=== PATIENT | female | born 1940 | race Caucasian/White ===

== ENCOUNTER 2022-01-24 08:08 | Day surgery (SDC) | payer MEDICARE, BC, SELFPAY ==
[2022-01-24] VITALS (30 sets, daily range): BP systolic 101–164; BP diastolic 52–84; PULSE 40–72; RESP 12–20; TEMP 35.8–37.1; O2SAT 87–99; BMI 26.7
[2022-01-24] MEDS: OXYCODONE (CR) 10 MG TAB.ER.12H PO (08:33)
[2022-01-24] MEDS: CELECOXIB 200 MG CAPSULE PO ×2 (09:55→20:36)
[2022-01-24] MEDS: ACETAMINOPHEN 500 MG TABLET 1000 MG PO ×3 (09:55→22:08)
[2022-01-24] MEDS: LACTATED RINGERS 1000 ML 1,000 ML 100 ML IV ×2 (10:15→11:39)
[2022-01-24] MEDS: fentaNYL 100 MCG/2 ML inj IVP (10:25)
--- NOTE | 2022-01-24 10:28 | W.PM.NB ---
Nerve Block Nerve Block Time Seen by Provider: 10:25 Date Seen: 01/24/22 Type of block requested by surgeon for post-operative analgesia: adductor canal Side: left Time out performed: Yes Verification of patient name: Yes Verification of date of : Yes Site marking: site marked Name of person performing procedure: Sonido Assistants, if any: Chris Continuous monitoring Was continuous monitoring of O2 sat, B/P, nurse monitoring, recorded every 15 minutes?: Yes Procedure Checklist: sterile prep, needles and gloves Ultrasound guided. Images saved: Yes Medications given in 5ml increments after negative aspiration: Ropivicaine %: 0.5 mL: 20 Needle gauge: 20 Decadron (mg): 10 Precedex (mcg): 25 Patient tolerated procedure well: Yes Additional comments: Needle noted adjacent to nerve Block Charges Block Charge (with Pro Fee): Femoral Nerve Use of Ultrasound Machine for Block: Yes- US Guidance/pain block
[2022-01-24] MEDS: MIDAZOLAM HCL 1 MG/ML inj IVP (10:30)
--- NOTE | 2022-01-24 10:31 | SUR.PREOP ---
TIME?OUT:?1022 left knee PT/RN/MDA?VERIFICATION?OF?SURGICAL?SITE,?PROCEDURE,?AND?CONSENT OBTAINED?PRIOR?TO?INVASIVE?PROCEDURE.
[2022-01-24] MEDS: SODIUM CHLORIDE 0.9 % (FLUSH) 10 ML SYRINGE IVF (10:34)
[2022-01-24] MEDS: CEFAZOLIN 2 GM INJ IVP (10:35)
[2022-01-24] MEDS: TRANEXAMIC ACID 100 MG/ML INJ 1000 MG IV (10:40)
--- NOTE | 2022-01-24 10:46 | W.PM.NB ---
Nerve Block Nerve Block Time Seen by Provider: 10:25 Date Seen: 01/24/22 Type of block requested by surgeon for post-operative analgesia: geniculars Side: left Time out performed: Yes Verification of patient name: Yes Verification of date of : Yes Site marking: site marked Name of person performing procedure: Sonido Continuous monitoring Was continuous monitoring of O2 sat, B/P, hall monitor, recorded every 15 minutes?: Yes Procedure Checklist: sterile prep, needles and gloves Medications given in 5ml increments after negative aspiration: Ropivicaine %: 0.5 mL: 9 Needle gauge: 25 Patient tolerated procedure well: Yes Block Charges Block Charge (with Pro Fee): Genicular Nerve Block Use of Ultrasound Machine for Block: No
--- NOTE | 2022-01-24 11:13 | W.ANESCHARGE ---
Anesthesia Charges Start Date/Time Anesthesia Start Date: 01/24/22 Anesthesia Start Time: 10:30 Stop Date/Time Anesthesia Stop Date: 01/24/22 Anesthesia Stop Time: 12:42 Summary Emergency: No Extremes of Age: Over 71-CPT 15755
--- NOTE | 2022-01-24 11:46 | CRLHL7_ITS ---
For Patients: As a result of the Century Cures Act, medical imaging exams and procedure reports are released immediately into your electronic medical record. You may view this report before your referring provider. If you have questions, please contact your health care provider. Indication: POST-OP LFT TKA Technique: Two views left knee Findings/Impression: Hardware from a left total knee arthroplasty is in satisfactory position. Bone alignment is normal. No sign of acute fracture. Postop changes are within normal limits. Dictated by Dariel Albright MD @ 01/24/2022 1:07:28 PM (Electronically Signed)
--- NOTE | 2022-01-24 11:48 | PM.ORPRC ---
Procedure Note Date of procedure: 01/24/22 Procedure: SURGEON: Gucci Sneed MD FLUME WORKER: Soila Tinajero PA-C PREOPERATIVE DIAGNOSIS: Left knee osteoarthritis POSTOPERATIVE DIAGNOSIS: Left knee osteoarthritis NAME OF OPERATION: Left total knee arthroplasty ANESTHESIA: Spinal ESTIMATED BLOOD LOSS: 0 mL COMPLICATIONS: None SPECIMENS: None DRAINS: None PREOPERATIVE ANTIBIOTICS: Ancef 1 g IMPLANTS: 1. J&J Attune # 5 posterior stabilized femur 2. # 5 fixed-bearing tibia 3. # 5 posterior stabilized, 5 mm fixed-bearing polyethylene 4. 38 patella INDICATIONS: The patient is a 81-year-old with a longstanding history of severe, unrelenting left knee pain secondary to end-stage (grade IV) left knee osteoarthritis. Despite appropriate nonoperative management, including activity modification, anti-inflammatories, huqa-cdz-ppvinne pain medication, bracing, physical therapy, and injections they continue to have pain and disability. Operative intervention was offered. The risks, benefits and expected outcomes were discussed in detail. These included but were not limited to: Infection, bleeding, injury to blood vessel or nerve, venous thromboembolism. All questions were answered to their satisfaction. Use of an oceanographer assistant was necessary throughout the case for patient positioning and safety, soft tissue retraction, and closure. PROCEDURE: Spinal anesthesia was administered. The patient was placed supine on the operating table. The oceanographer assistant made sure the patient was positioned appropriately. The lower extremity was prepped and draped in the usual sterile fashion. The limb was exsanguinated with the Nadir bandage. The pneumatic tourniquet was inflated to 300 mmHg. A standard anterior incision was made with the knee in flexion. Subcutaneous dissection was sharply taken through fascial layer #1. Full-thickness medial and lateral flaps were elevated. The oceanographer assistant retracted the soft tissues and protected them throughout the case. A standard medial parapatellar approach was made. The patella was everted. The infrapatellar fat pad was preserved. The menisci and cruciate ligaments were sharply d?brided. Marginal osteophytes were d?brided with the rongeur. The drill was used to penetrate the femoral canal. The canal was aspirated and irrigated with pulse lavage. The intramedullary femoral guide was placed for a 5-degree valgus cut, removing 10 mm off the distal femur. The saw was used to make the cut. Whitesides line and the trans epicondylar axis were marked. The femoral sizing guide was pinned onto the distal femur. Three degrees of external rotation nicely parallels the transepicondylar axis. Pins were placed for posterior referencing. The four-in-one cutting guide was pinned onto the distal femur. The anterior, posterior, and chamfer cuts were made. The oceanographer assistant protected the collateral ligaments. The box cutting guide was pinned. The box cuts were made. The boxed trial was placed and was an excellent fit. Drill holes for the lugs were made. Attention was then turned to the proximal tibia. The extramedullary tibial guide was placed for a neutral varus/valgus cut with 5 degrees of posterior slope, removing 2 mm based off the medial tibial surface. The oceanographer assistant protected the collateral ligaments and the neurovascular bundle. The saw was used to make the cut. Trial components were placed. The knee was nicely balanced in both flexion and extension. The trial components were removed. The tray was placed in appropriate rotation, parallel to our tibial cutting pins. It was pinned by the oceanographer assistant and the drill and the punch were used. The tray was removed. The punch was used again. We placed a bone plug in the femoral canal. Attention was then turned to the patella. [place] patellar thickness was 26 mm. The lobster claw resection guide was used with the 9.5 mm luis fernando. The saw was used to make the cut. Drill holes were made by the oceanographer assistant. The trial was placed and was an excellent fit. Cancellous surfaces were irrigated with pulse lavage and thoroughly dried by the oceanographer assistant. We cemented the tibial component, then the femoral component. We impacted the 5 mm polyethylene onto the tibial tray. The knee was brought into full extension. We then cemented the patellar component. Excessive cement was removed. The cement was allowed to harden. The knee was taken through a range of motion and was found to be nicely balanced in both flexion and extension. The patella tracks centrally. The oceanographer assistant did a three minute dilute Betadine solution soak. The oceanographer assistant irrigated the wound with 3 liters of normal saline via pulse lavage. The oceanographer assistant reapproximated the extensor mechanism with #1 Vicryl in an interrupted xkksng-zc-pikms fashion. The oceanographer assistant then ran the extensor mechanism with a #1 PDO Stratafix. The oceanographer assistant closed the subcutaneous tissues with a 3-0 Stratafix and the skin with a running 3-0 Stratafix in a subcuticular fashion. Glue was used to seal the skin. The oceanographer assistant placed a dry dressing, AUBREY stocking, and Polar Care. Sponge and needle counts were correct x2. The patient tolerated the procedure well. There were no apparent complications. They were carefully transferred to the hospital bed and taken to the postanesthesia care unit in satisfactory condition. PLAN: The patient will be mobilized with physical therapy. Aspirin will be used for DVT prophylaxis. They will be discharged to home once medically appropriate.
--- NOTE | 2022-01-24 12:45 | W.ANESCHARGE ---
Anesthesia Charges Start Date/Time Anesthesia Start Date: 01/24/22 Anesthesia Start Time: 10:30 Stop Date/Time Anesthesia Stop Date: 01/24/22 Anesthesia Stop Time: 12:42 Summary Emergency: No Extremes of Age: Over 71-CPT 78028
--- NOTE | 2022-01-24 13:22 | SUR.PHASEI ---
patient met discharge criteria per anesthesia
[2022-01-24] MEDS: HYDROmorphone 0.5 mg/0.5 ml inj IVP (13:30)
--- NOTE | 2022-01-24 14:41 | PM.IMCN1 ---
Date of Consult Patient: Other ([place]) Consult date: 01/24/22 Requesting Physician: Orthopedics Primary Care Provider: Mane Morfin MD Consult Narrative Narrative: Amira Bliss is a 81 year old female who underwent an elective left total knee arthroplasty today. She is doing well postoperatively and has no complaints. Denies CP, SOB. Review of Systems Status of ROS: Reports: 6 or more systems reviewed and unremarkable except as noted in History and below PFSH PFSH Medical History (Updated 01/24/22 @ 23:21 by Shari Watts MD) ASCVD (arteriosclerotic cardiovascular disease) Bradycardia Carpal tunnel syndrome Chest pain Colon polyp Cystocele Depression Dermatochalasis of both eyelids DVT (deep venous thrombosis) (~08/2019) High cholesterol Hypertension Hypertensive heart disease without CHF Major depressive disorder, single episode, unspecified Osteomyelitis STEMI (ST elevation myocardial infarction) Uterine prolapse without mention of vaginal wall prolapse Surgical History (Updated 01/24/22 @ 14:52 by Shari Watts MD) H/O aortic valve repair H/O blepharoplasty H/O colonoscopy H/O foot surgery H/O heart bypass surgery (08/2019) History of bunionectomy of left great toe (~2001) History of carpal tunnel release History of vaginal hysterectomy (~2012) Status post aorto-coronary artery bypass graft Family History (Updated 01/24/22 @ 14:52 by Shari Watts MD) Father FH: coronary artery bypass surgery Brother FH: coronary artery bypass surgery Cancer Diabetes COPD (chronic obstructive pulmonary disease) Mother Asthma Social History Smoking Status: Never smoker Do you use any of these nicotine containing products: None Second hand tobacco smoke exposure: No How often do you have a drink containing alcohol: monthly or less Alcohol type: wine and hard liquor How many standard drinks containing alcohol do you have on a typical day: 1 or 2 How often do you have six or more drinks on one occasion: Never AUDIT-C Alcohol total score: 1 Non-prescribed substance use: denies use Caffeine: Yes (coffee, 1 cup/day and tea 1 cup/day) Are you now , , , , never or living with a partner: Social isolation score (0-1 are the most socially isolated patients): 1 service: No Meds Home Medications and Allergies Home Medications Medication Instructions Recorded Confirmed Type acetaminophen 500 mg tablet 500 mg PO Q6H PRN 11/18/21 01/24/22 History amlodipine 5 mg tablet 10 mg PO DAILY 11/18/21 01/24/22 History aspirin 81 mg chewable tablet 1 tab PO DAILY 11/18/21 01/24/22 History atorvastatin 80 mg tablet 80 mg PO HS 11/18/21 01/24/22 History citalopram 20 mg tablet 20 mg PO DAILY 11/18/21 01/24/22 History zjyfffzghpr-gxjcozwtjfp-lzl C 500 1 tab PO DAILY 11/18/21 01/24/22 History mg-400 mg-20 mg tablet loratadine 10 mg tablet 10 mg PO DAILY 11/18/21 01/24/22 History metoprolol tartrate 100 mg tablet 100 mg PO BID 11/18/21 01/24/22 History multivitamin 1 tab PO QAM 11/18/21 01/24/22 History nitroglycerin 0.4 mg sublingual 0.4 mg sublingual Q5M PRN 11/18/21 01/24/22 History tablet omega-3 fatty acids 1,000 mg 1,000 mg PO QDAY 11/18/21 01/24/22 History capsule losartan 25 mg tablet 12.5 mg PO DAILY 11/21/21 01/24/22 History melatonin 3 mg capsule 3 mg PO QDAY 11/21/21 01/24/22 History Allergies Allergy/AdvReac Type Severity Reaction Status Date / Time ciprofloxacin Allergy Mild Unknown Verified 01/24/22 08:45 Penicillins Allergy Diarrhea Verified 01/24/22 08:45 propoxyphene Allergy UNKNOWN Verified 01/24/22 08:45 codeine AdvReac Gastrointestinal Verified 01/24/22 08:45 Upset erythromycin base AdvReac Gastrointestinal Verified 01/24/22 08:45 Upset minocycline AdvReac GI UPSET Verified 01/24/22 08:45 Conjugated estrogen Allergy Mild Abdominal Uncoded 01/24/22 08:45 Pain Sulfa Antibiotics Allergy Mild Hives Uncoded 01/24/22 08:45 Exam Narrative: Exam Narrative: General: No acute distress. Awake alert oriented x3. HEENT: Normocephalic atraumatic, pupils equally round and reactive to light and accommodation. Oropharynx clear. Mucous membranes are moist. No cervical lymphadenopathy, thyromegaly or carotid bruits. No JVD. Cardiovascular: Regular rate and rhythm. No murmurs, gallops, or rubs. Chest: No increased work of breathing. Clear to auscultation bilaterally. No crackles or wheezes. Abdomen: Bowel sounds present. Soft, nondistended, nontender. No hepatosplenomegaly or masses. Extremities: Left knee bandage is clean, dry, and intact. No edema, no cyanosis or clubbing. Skin: No jaundice, no pallor, no rashes. Const: Vital Signs, click to edit/add: Vital Signs - 24 hr 01/24/22 09:20 01/24/22 10:25 01/24/22 12:38 Temperature 98.7 F 98 F Pulse Rate 48 L 49 L 48 L Pulse Rate [Right Pulse Oximeter] Respiratory Rate 20 20 12 Blood Pressure 139/56 L 133/56 L 130/59 L Blood Pressure [Ri ght Arm] Pulse Oximetry 98 98 99 Oxygen Delivery Me thod Room Air Room Air Oxygen Flow Rate 01/24/22 12:45 01/24/22 12:50 01/24/22 12:55 Temperature 98 F 98 F 98 F Pulse Rate 49 L 49 L 49 L Pulse Rate [Right Pulse Oximeter] Respiratory Rate 16 12 13 Blood Pressure 101/65 143/66 H 144/65 H Blood Pressure [Ri ght Arm] Pulse Oximetry 99 96 94 Oxygen Delivery Me thod Room Air Room Air Room Air Oxygen Flow Rate 01/24/22 13:00 01/24/22 13:05 01/24/22 13:10 Temperature 98 F 98 F 98 F Pulse Rate 49 L 49 L 49 L Pulse Rate [Right Pulse Oximeter] Respiratory Rate 13 14 14 Blood Pressure 145/60 H 152/65 H 140/61 H Blood Pressure [Ri ght Arm] Pulse Oximetry 94 95 95 Oxygen Delivery Me thod Room Air Room Air Room Air Oxygen Flow Rate 01/24/22 13:15 01/24/22 13:15 01/24/22 13:32 Temperature 96.5 F L 96.5 F L Pulse Rate 49 L Pulse Rate [Right Pulse Oximeter] 45 L 50 L Respiratory Rate 14 14 14 Blood Pressure Blood Pressure [Ri ght Arm] 109/52 L 109/52 L 138/66 Pulse Oximetry 91 92 Oxygen Delivery Me thod Room Air Room Air Room Air Oxygen Flow Rate 01/24/22 13:45 01/24/22 14:15 01/24/22 14:16 Temperature Pulse Rate 47 L 45 L Pulse Rate [Right Pulse Oximeter] Respiratory Rate 14 Blood Pressure Blood Pressure [Ri ght Arm] 137/84 Pulse Oximetry 88 Oxygen Delivery Me thod Room Air Oxygen Flow Rate 01/24/22 14:16 01/24/22 14:00 01/24/22 13:45 Temperature Pulse Rate Pulse Rate [Right Pulse Oximeter] 44 L 40 L 40 L Respiratory Rate 14 14 Blood Pressure Blood Pressure [Ri ght Arm] 122/61 134/77 Pulse Oximetry 88 87 L Oxygen Delivery Me thod Nasal Cannula Room Air Oxygen Flow Rate 1 01/24/22 13:00 01/24/22 13:00 01/24/22 14:15 Temperature Pulse Rate Pulse Rate [Right Pulse Oximeter] 44 L 42 L Respiratory Rate 16 14 Blood Pressure Blood Pressure [Ri ght Arm] 114/70 Pulse Oximetry 88 93 Oxygen Delivery Me thod Nasal Cannula Oxygen Flow Rate 1 Labs Labs: Ordering Physician: Gucci Sneed M.D. Date of Service: 01/24/22 Procedure(s): XR knee LT 2V Accession Number(s): [id number] cc: Gucci Sneed M.D.; Provider,Not a Local ~ For Patients: As a result of the Cures Act, medical imaging exams and procedure reports are released immediately into your electronic medical record. You may view this report before your referring provider. If you have questions, please contact your health care provider. Indication: POST-OP LFT TKA Technique: Two views left knee Findings/Impression: Hardware from a left total knee arthroplasty is in satisfactory position. Bone alignment is normal. No sign of acute fracture. Postop changes are within normal limits. Dictated by Dariel Albright MD @ 01/24/2022 1:07:28 PM (Electronically Signed) Assessment and Plan Assessment and plan (1) Status post left knee replacement: Status: Acute Assessment and Plan: routine cares. (2) Osteoarthritis of left knee: Status: Chronic (3) DVT (deep venous thrombosis): Problem comment: 10/02/19 LUE and right internal jugular vein Status: Chronic Assessment and Plan: May benefit from more intensive VTE prophylaxis with xarelto in post op period. (4) ASCVD (arteriosclerotic cardiovascular disease): Status: Chronic (5) Bradycardia: Problem comment: EKG 01/10/22 Marked sinus bradycardia with short SD Is on metoprolol chronically. Status: Chronic Plan Continue home meds, except hold amlodipine. If hypertensive tomorrow morning, restart amlodipine.
[2022-01-24] MEDS: OXYCODONE 5 MG TABLET PO ×2 (15:24→20:37)
[2022-01-24] MEDS: CEFAZOLIN 1 GM in 0.9 % SODIUM CHLORIDE Mini-bag 100 ML IVPB (17:02)
[2022-01-24] MEDS: LACTATED RINGERS 1000 ML 1,000 ML 75 ML IV (18:49)
--- NOTE | 2022-01-24 20:10 | PC.NURSE ---
end of shift. pt has been pleasant. pain left knee 2-5 0.5 IVP d and 5 mg oxycodone. she is eating drinking and voiding. dressing is C/D/I cryo cuff to the knee. IV is patent.
[2022-01-24] MEDS: SENNOSIDES 1 TAB TABLET 2 TAB PO (20:36)
[2022-01-24] MEDS: ASPIRIN 81 MG TABLET EC PO (20:36)
[2022-01-25] MEDS: CEFAZOLIN 1 GM in 0.9 % SODIUM CHLORIDE Mini-bag 100 ML IVPB ×2 (00:06→08:10)
--- NOTE | 2022-01-25 03:01 | PC.NURSE ---
Pt rested well this night. Pain controlled. Up to BR and Voiding. No N/V. Afebrile. VS unremarkable.
[2022-01-25 04:04] VITALS: BP 158/65; PULSE 79; RESP 16; TEMP 36.4; O2SAT 97
[2022-01-25 04:10] VITALS: TEMP 36.4
[2022-01-25] MEDS: ACETAMINOPHEN 500 MG TABLET 1000 MG PO ×2 (04:10→10:42)
[2022-01-25] MEDS: OXYCODONE 5 MG TABLET PO ×2 (04:10→09:18)
[2022-01-25 07:00] VITALS: BP 159/65; PULSE 67; PULSE 77; RESP 18; TEMP 37; O2SAT 96
[2022-01-25 07:27] LABS: Basophils Percent Auto 0.1 % (0.0-3.0); Hematocrit 38.8 % (33.0-51.0); Hemoglobin* 12.6 gm/dL (12.0-16.0); Immature Granulocytes Pct Auto 0.4 %; Lymphocytes Percent Auto 7.2 % (20-44); Mean Corpuscular HGB Conc 33 gm/dL (32-36); Mean Corpuscular Hemoglobin 29 pg (26-34); Mean Corpuscular Volume 90 fL (80-100); Monocytes Percent Auto 5.4 % (0.0-11.0); Neutrophils Percent Auto 86.9 % (42.0-72.0); Platelet Count* 189 K/uL (140-440); RDW Coefficient of Variation % 12.3 % (11.5-15.5); White Blood Count* 12.86 K/uL (4.50-11.00)
[2022-01-25 07:34] LABS: Slide Review Reflex No
[2022-01-25 07:42] LABS: Potassium* 4.3 mmol/L (3.6-5.1); Sodium* 137 mmol/L (135-149)
[2022-01-25 07:45] LABS: Blood Urea Nitrogen* 22 mg/dL (7-30); Creatinine* 0.8 mg/dL (0.5-1.5); Est. Creatinine Clearance* 38.75; Estimated Glomerular Filt Rate 74 ml/min; INR 1.08 (0.91-1.10); Prothrombin Time 14.6 Seconds
--- NOTE | 2022-01-25 08:42 | PM.ORPN ---
Subjective Subjective Time Seen by Provider: 07:30 Date Seen: 01/25/22 Principal diagnosis: Status post left knee replacement Interval history: Amira is quite comfortable this morning. She will discharge to home. Ortho Exam Narrative Exam Narrative: Alert and oriented x3. Patient is in no acute distress. Converses without labored breathing. Hearing is grossly intact. Ambulates with a walker. Examination of the left knee shows the dressing is intact. Mild soft tissue edema about the knee. Mild effusion. CMS intact left lower extremity. Bilateral calves are soft and nontender Const Vital Signs, click to edit/add: Vital Signs - 24 hr 01/24/22 09:20 01/24/22 10:25 01/24/22 12:38 Temperature 98.7 F 98 F Pulse Rate 48 L 49 L 48 L Pulse Rate [Right Pulse Oximeter] Respiratory Rate 20 20 12 Blood Pressure 139/56 L 133/56 L 130/59 L Blood Pressure [Right Arm] Pulse Oximetry 98 98 99 Oxygen Delivery Method Room Air Room Air Oxygen Flow Rate 01/24/22 12:45 01/24/22 12:50 01/24/22 12:55 Temperature 98 F 98 F 98 F Pulse Rate 49 L 49 L 49 L Pulse Rate [Right Pulse Oximeter] Respiratory Rate 16 12 13 Blood Pressure 101/65 143/66 H 144/65 H Blood Pressure [Right Arm] Pulse Oximetry 99 96 94 Oxygen Delivery Method Room Air Room Air Room Air Oxygen Flow Rate 01/24/22 13:00 01/24/22 13:05 01/24/22 13:10 Temperature 98 F 98 F 98 F Pulse Rate 49 L 49 L 49 L Pulse Rate [Right Pulse Oximeter] Respiratory Rate 13 14 14 Blood Pressure 145/60 H 152/65 H 140/61 H Blood Pressure [Right Arm] Pulse Oximetry 94 95 95 Oxygen Delivery Method Room Air Room Air Room Air Oxygen Flow Rate 01/24/22 13:15 01/24/22 13:15 01/24/22 13:32 Temperature 96.5 F L 96.5 F L Pulse Rate 49 L Pulse Rate [Right Pulse Oximeter] 45 L 50 L Respiratory Rate 14 14 14 Blood Pressure Blood Pressure [Right Arm] 109/52 L 109/52 L 138/66 Pulse Oximetry 91 92 Oxygen Delivery Method Room Air Room Air Room Air Oxygen Flow Rate 01/24/22 13:45 01/24/22 14:15 01/24/22 14:16 Temperature Pulse Rate 47 L 45 L Pulse Rate [Right Pulse Oximeter] Respiratory Rate 14 Blood Pressure Blood Pressure [Right Arm] 137/84 Pulse Oximetry 88 Oxygen Delivery Method Room Air Oxygen Flow Rate 01/24/22 14:16 01/24/22 14:00 01/24/22 13:45 Temperature Pulse Rate Pulse Rate [Right Pulse Oximeter] 44 L 40 L 40 L Respiratory Rate 14 14 Blood Pressure Blood Pressure [Right Arm] 122/61 134/77 Pulse Oximetry 88 87 L Oxygen Delivery Method Nasal Cannula Room Air Oxygen Flow Rate 1 01/24/22 13:00 01/24/22 13:00 01/24/22 14:15 Temperature Pulse Rate Pulse Rate [Right Pulse Oximeter] 44 L 42 L Respiratory Rate 16 14 Blood Pressure Blood Pressure [Right Arm] 114/70 Pulse Oximetry 88 93 Oxygen Delivery Method Nasal Cannula Oxygen Flow Rate 1 01/24/22 15:00 01/24/22 15:40 01/24/22 15:40 Temperature 97.0 F L Pulse Rate Pulse Rate [Right Pulse Oximeter] 50 L 50 L Respiratory Rate 14 14 Blood Pressure Blood Pressure [Right Arm] 142/59 H Pulse Oximetry 92 92 Oxygen Delivery Method Nasal Cannula Oxygen Flow Rate 1 01/24/22 15:42 01/24/22 15:30 01/24/22 16:00 Temperature 97.0 F L 97.2 F L Pulse Rate 50 L Pulse Rate [Right Pulse Oximeter] 55 L 54 L Respiratory Rate 16 14 Blood Pressure Blood Pressure [Right Arm] 129/53 L 138/59 L Pulse Oximetry 97 98 Oxygen Delivery Method Nasal Cannula Nasal Cannula Oxygen Flow Rate 1 1 01/24/22 16:32 01/24/22 19:21 01/24/22 17:30 Temperature 97.6 F Pulse Rate Pulse Rate [Right Pulse Oximeter] 60 60 45 L Respiratory Rate 16 16 16 Blood Pressure Blood Pressure [Right Arm] 130/71 143/59 H 132/64 Pulse Oximetry 97 94 95 Oxygen Delivery Method Nasal Cannula Room Air Room Air Oxygen Flow Rate 1 1 01/24/22 18:00 01/24/22 18:30 01/24/22 22:08 Temperature 97.6 F Pulse Rate Pulse Rate [Right Pulse Oximeter] 50 L 51 L Respiratory Rate 16 16 Blood Pressure Blood Pressure [Right Arm] 154/60 H 141/63 H Pulse Oximetry 94 93 Oxygen Delivery Method Room Air Room Air Oxygen Flow Rate 01/24/22 22:14 01/24/22 23:10 01/24/22 23:12 Temperature 98 F 98 F Pulse Rate Pulse Rate [Right Pulse Oximeter] 72 72 72 Respiratory Rate 16 16 16 Blood Pressure Blood Pressure [Right Arm] 164/64 H 164/64 H Pulse Oximetry 96 96 Oxygen Delivery Method Room Air Room Air Oxygen Flow Rate 1 01/24/22 23:13 01/24/22 23:13 01/25/22 04:04 Temperature 97.6 F Pulse Rate 50 L Pulse Rate [Right Pulse Oximeter] 79 Respiratory Rate 16 Blood Pressure Blood Pressure [Right Arm] 158/65 H Pulse Oximetry 96 97 Oxygen Delivery Method Room Air Oxygen Flow Rate 01/25/22 04:10 01/25/22 07:00 Temperature 97.6 F 98.6 F Pulse Rate Pulse Rate [Right Pulse Oximeter] 77 Respiratory Rate 18 Blood Pressure Blood Pressure [Right Arm] 159/65 H Pulse Oximetry 96 Oxygen Delivery Method Room Air Oxygen Flow Rate Assessment and Plan Assessment and plan (1) Status post left knee replacement: Problem details: 01/24/2022 Status: Acute Assessment and Plan: Plan for discharge is today to home if they meet discharge criteria. DVT prophylaxis includes Xarelto 10 mg per day x1 month, [place] stockings x1 month may remove for 1 hr per day, frequent ambulation Remove dressing in 1 week. Observe wound and phone Orthopedics with any questions or concerns Return to clinic in 1 week for a wound check Return to clinic in [address] Sneed Minimize narcotic use. Wean off and discontinue soon as possible. Activities as tolerated. No strenuous activity. Outpatient physical therapy as scheduled. Ice and elevate the operative extremity. No restriction on ice. (2) Osteoarthritis of left knee: Status: Chronic (3) DVT (deep venous thrombosis): Problem details: 10/02/19 LUE and right internal jugular vein Status: Chronic (4) ASCVD (arteriosclerotic cardiovascular disease): Status: Chronic (5) Bradycardia: Problem details: EKG 01/10/22 Marked sinus bradycardia with short [place] Is on metoprolol chronically. Status: Chronic
[2022-01-25] MEDS: ASPIRIN 81 MG TABLET EC PO (09:17)
[2022-01-25] MEDS: CELECOXIB 200 MG CAPSULE PO (09:17)
[2022-01-25] MEDS: LOSARTAN POTASSIUM 50 MG TABLET 12.5 MG PO (09:17)
[2022-01-25] MEDS: LORATADINE 10 MG TABLET PO (09:17)
[2022-01-25] MEDS: CITALOPRAM HYDROBROMIDE 20 MG TABLET PO (09:17)
[2022-01-25] MEDS: MULTIVITAMIN/MINERALS 1 TABLET 1 TAB PO (09:18)
[2022-01-25] MEDS: METOPROLOL TARTRATE 100 MG TABLET PO (09:18)
[2022-01-25] MEDS: SENNOSIDES 1 TAB TABLET 2 TAB PO (09:18)
[2022-01-25 11:00] VITALS: BP 141/74; PULSE 69; RESP 24; TEMP 37.4; O2SAT 96
[2022-01-25 12:00] VITALS: BP 141/74; PULSE 69; TEMP 37.4
--- NOTE | 2022-01-25 14:48 | PC.NURSE ---
Nursing Care Hours: 8210-9033 Pt this shift calm and cooperative with cares. Denies pain, says it is a dull ache, rates 1/10. 5 mg Oxycodone given prior to working with PT and OT. SB assist with walker and gait belt, gait steady. Tolerating regular diet. CMS intact, bilat pedal pulses strong and even, dressing to L knee CDI. DC instructions given, all questions and concerns addressed. IV in L AC was pulled out by pt accidentally while dressing upper body. No SS of trauma, no bleeding. Area wiped clean, bandage removed and band aid applied. Wheel chair out to car with spouse, pt in stable condition.
== END 2022-01-25 12:05 | disposition home or self-care (01) ==
LOC: OR 08:09 → MEDSURG 08:13
PROVIDERS: Visit Provider Orthopaedic Surgery
PROC: (CPT 27447; principal; 2022-01-24 10:45)
DX: M17.12 Unilateral primary osteoarthritis, left knee (principal); M25.562 Pain in left knee; I25.10 Atherosclerotic heart disease of native coronary artery without angina pectoris; I10 Essential (primary) hypertension; F32.9 Major depressive disorder, single episode, unspecified; I25.2 Old myocardial infarction; Z86.718 Personal history of other venous thrombosis and embolism; R00.1 Bradycardia, unspecified; Z79.01 Long term (current) use of anticoagulants
CPT/HCPCS: 27447; 01402; 36415; 64447; 64454; 73560; 76942; 82565; 84132; 84295; 84520; 85025; 85610; 94761; 97110; 97116; 97161; 97165; 97535; 99100; A9153; A9270; C1776; J0690; J1100; J1170; J2250; J2370; J2405; J2704; J2795; J3010; J7120